=== PATIENT | male | born 1980 | race Caucasian/White ===

== ENCOUNTER 2018-10-21 16:42 | Inpatient (IN) | payer BC ==
[~2018-10-21] VITALS: Ht 175.3 cm; Wt 95.8 kg
[2018-10-21 16:45] VITALS: BP_SYST 179
--- NOTE | 2018-10-21 16:45 | NUR ---
Patient to ER bed 4 to gown for evaluation. Side rails up. Assumed care.
--- NOTE | 2018-10-21 16:55 | NUR ---
Patient AAOx4 c/o sub sternal chest pain that radiates to back and up to left upper jaw and ear. Patient reports last ETOH at 0900 today. Patient reports history of HTN, ADHD, and alcohol abuse. Patient reports pain as 3/10. Respirations even and unlabored. No signs or symptoms of acute distress noted.
[2018-10-21] MEDS ORDERED: ACETAMINOPHEN 325 MG TABLET PO ONE (17:00)
--- NOTE | 2018-10-21 17:00 | NUR ---
ER Dr. Leon at bedside examining patient.
[2018-10-21] MEDS ORDERED: ASPIRIN 81 MG TAB.CHEW PO ONE (17:15)
[2018-10-21 17:22] LABS: BASOPHILS # (AUTO) 0.1 K/uL (0.0-0.2); BASOPHILS % (AUTO) 0.9 % (0.0-2.0); EOSINOPHILS % (AUTO) 0.5 % (0.0-4.0); HEMATOCRIT 45.6 % (36-54); HEMOGLOBIN 15.9 g/dL (14.0-18.0); LYMPHOCYTES # (AUTO) 0.9 K/uL (1.0-5.5); LYMPHOCYTES % (AUTO) 10.5 % (20.5-51.5); MEAN CORPUSCULAR HEMOGLOBIN 31 pg (27-31); MEAN CORPUSCULAR HGB CONC 35 % (32-36); MEAN CORPUSCULAR VOLUME 88 fL (79.0-98.0); MONOCYTES # (AUTO) 1.1 K/uL (0.0-1.0); MONOCYTES % (AUTO) 12.1 % (1.7-9.3); NEUTROPHILS # (AUTO) 6.6 K/uL (1.8-7.7); PLATELET COUNT (AUTO) 253 K/uL (130-430); RED BLOOD CELL COUNT(AUTO) 5.21 MIL/uL (4.2-6.2); WHITE BLOOD COUNT (AUTO) 8.7 K/uL (4.8-10.8)
[2018-10-21 17:40] LABS: ANION GAP 4 (5-15); CALCIUM 9.1 mg/dL (8.4-11.0); CHLORIDE 93 mmol/L (98-107); CREATININE 1.24 mg/dL (0.55-1.30); GFR AFRICAN AMERICAN 83 mL/min (>90); GLUCOSE 112 mg/dL (70-99); SODIUM SERUM 131 mmol/L (136-145); UREA NITROGEN, BLOOD 12 mg/dL (8-21)
[2018-10-21 17:47] LABS: PROTHROMBIN TIME 10.3 SECS (9.5-12.5)
[2018-10-21 17:56] LABS: ALANINE AMINOTRANSFERASE 51 U/L (12-78); ALBUMIN 3.9 g/dL (3.4-4.8); ASPARTATE AMINOTRANSFERASE 40 U/L (10-37); FREE T4 (FREE THYROXINE) 0.9 ng/dL (0.6-1.6); TOTAL BILIRUBIN 1.8 mg/dL (0.0-1.0)
[2018-10-21 18:03] LABS: BILIRUBIN,URINE NEGATIVE (NEGATIVE); BLOOD, URINE 1+ (NEGATIVE); CLARITY/URINE CLEAR (CLEAR); COLOR,URINE YELLOW (YELLOW); GLUCOSE,URINE NEGATIVE (NEGATIVE); KETONES,URINE TRACE (NEGATIVE); LEUKOCYTE ESTERASE ,URINE NEGATIVE (NEGATIVE); NITRITE, URINE NEGATIVE (NEGATIVE); PROTEIN URINE 1+ (NEGATIVE)
[2018-10-21 18:05] LABS: ALCOHOL, BLOOD < 3 mg/dL (<10)
[2018-10-21 18:20] LABS: BARBITURATE, URINE NEGATIVE (NEG <=200); BENZODIAZEPINE, URINE NEGATIVE (NEG <=150); CANNABINOID, URINE NEGATIVE (NEG <=50); COCAINE, URINE NEGATIVE (NEG <=150); METHAMPHETAMINES SCREEN,URINE NEGATIVE (NEG <=500); OPIATE, URINE NEGATIVE (NEG <=100); PHENCYCLIDINE SCREEN,URINE NEGATIVE (NEG <=25); UR TRICYCLIC ANTIDEPRESSANTS NEGATIVE (NEG <=300); URINE AMPHETAMINE POSITIVE (NEG <=500); URINE METHADONE NEGATIVE (NEG <=200); URINE OXYCODONE SCREEN NEGATIVE (NEG <=100); URINE PROPOXYPHENE SCREEN NEGATIVE (NEG <=300)
[2018-10-21] MEDS ORDERED: Adderall PO (18:26)
[2018-10-21 18:35] LABS: BACTERIA,URINE FEW /HPF (None Seen); RBC,URINE 0-3 /HPF (0-3); WBC,URINE 0-3 /HPF (0-3)
[2018-10-21 18:37] LABS: MUCUS,URINE None Seen /LPF (None Seen)
[2018-10-21] MEDS ORDERED: METOPROLOL TARTRATE 5 MG/5 ML VIAL IVP ONE (18:45)
--- NOTE | 2018-10-21 19:00 | NUR ---
Pt report received. Pt AAOx4, even and non-labored respirations, denies c/o C/P or discomfort at this time. No needs verbalized at this time. VSS, NAD.
--- NOTE | 2018-10-21 20:15 | NUR ---
Pt states that C/P is at 2/10, refuses NTG at this time. No needs verbalized, VSS, NAD.
[2018-10-21] MEDS ORDERED: NACL 0.9% 1,000 ML IV ONE (20:30)
[2018-10-21] MEDS ORDERED: NITROGLYCERIN 0.4 MG TAB.SUBL SL PRN (20:30)
--- NOTE | 2018-10-21 20:30 | NUR ---
Dr. Landa at bedside to assess pt.
--- NOTE | 2018-10-21 20:50 | NUR ---
Patient will be admitted to care of Dr. Landa. Admitted to Tele unit. Will go to room 122A. Belongings list completed. Summary report printed. Report will be given at bedside.
--- NOTE | 2018-10-21 21:09 | NUR ---
Admission Note Received patient from ER with diagnosis of R/O OR. Initial Plan of Care discussed-patient verbalized understanding. Oriented to room, call light, pain management and safety.
[2018-10-21 21:20] VITALS: BP_SYST 149
--- NOTE | 2018-10-21 23:00 | NUR ---
ROUNDS Patient in bed, eyes closed, appears to be asleep. No signs of discomfort noted. Chest rise and fall even bilaterally. IVF infusing well. Call light with patient. Will continue to monitor.
--- NOTE | 2018-10-22 01:00 | NUR ---
ROUNDS Patient sleeping at this time. No s/s of acute distress noted. Breathing even and unlabored. IVF infusing well. Call light with patient. Will continue to monitor.
[2018-10-22 01:01] VITALS: BP_SYST 136
--- NOTE | 2018-10-22 03:00 | NUR ---
ROUNDS Patient sleeping. No signs of discomfort noted. IVF infusing well. Call light with patient. Will continue to monitor.
--- NOTE | 2018-10-22 05:00 | NUR ---
ROUNDS Patient sleeping at this time. No signs of discomfort noted. Chest rise and fall even bilaterally. IVF infusing well. Call light with patient. Will continue to monitor.
--- NOTE | 2018-10-22 06:09 | NUR ---
CONSULTATION PAGED/CALLED Reason for Consultation: CP R/O OR Person Who was Notified: JOHN Consulting Physician: DR. MARIE; DR. TAVERAS DIRECTOR OF VITAL STATISTICS Machine Stuffer Automatic Specialty: CARDIO Ordering Physician: DR. BHATTI
--- NOTE | 2018-10-22 06:38 | NUR ---
CLOSING NOTE Patient in bed, sleeping. No s/s of acute distress noted. Breathing even and unlabored. IVF infusing well. IV site patent, no signs of infiltration or infection noted. All needs met throughout shift. Fall and safety precautions maintained throughout shift. Will continue to monitor until patient care is endorsed to oncoming dayshift nurse.
--- NOTE | 2018-10-22 07:30 | NUR ---
A/Ox4. ST on monitor. IV on left AC, #18, SL, intact and patent. Instructed on safety. Call light in place, bed locked at the lowest position, will continue to monitor.
[2018-10-22 08:00] VITALS: BP_SYST 136
--- NOTE | 2018-10-22 09:10 | NUR ---
PATIENT IS EATING BREAKFAST, NO SIGNS OF DISTRESS NOTED.
[2018-10-22 09:36] LABS: BASOPHILS % (AUTO) 0.5 % (0.0-2.0); EOSINOPHILS % (AUTO) 0.5 % (0.0-4.0); HEMATOCRIT 43.1 % (36-54); HEMOGLOBIN 15.1 g/dL (14.0-18.0); LYMPHOCYTES # (AUTO) 0.8 K/uL (1.0-5.5); MEAN CORPUSCULAR HEMOGLOBIN 31 pg (27-31); MEAN CORPUSCULAR HGB CONC 35 % (32-36); MEAN CORPUSCULAR VOLUME 88 fL (79.0-98.0); MONOCYTES # (AUTO) 0.7 K/uL (0.0-1.0); MONOCYTES % (AUTO) 10.1 % (1.7-9.3); NEUTROPHILS # (AUTO) 5.3 K/uL (1.8-7.7); NEUTROPHILS % (AUTO) 76.9 % (40.0-70.0); PLATELET COUNT (AUTO) 211 K/uL (130-430); RED BLOOD CELL COUNT(AUTO) 4.87 MIL/uL (4.2-6.2); RED CELL DISTRIBUTION WIDTH 13.2 % (9.0-15.0)
[2018-10-22 09:41] LABS: CALCIUM 8.6 mg/dL (8.4-11.0); CREATININE 1.17 mg/dL (0.55-1.30); POTASSIUM 3.9 mmol/L (3.5-5.1)
[2018-10-22 09:56] LABS: ALBUMIN 3.2 g/dL (3.4-4.8); FREE T4 (FREE THYROXINE) 0.9 ng/dl (0.8-1.5); THYROID STIMULATING HORMONE 1.98 uIu/mL (0.36-3.74); TOTAL BILIRUBIN 1.6 mg/dL (0.0-1.0)
--- NOTE | 2018-10-22 10:10 | NUR ---
TROPONIN 0.218. IS INFORMED. NO NEW ORDERS GIVEN.
--- NOTE | 2018-10-22 11:08 | NUR ---
PATIENT IS RESTING. SR ON MONITOR, NO SIGNS OF DISTRESS NOTED.
[2018-10-22] MEDS ORDERED: ASPIRIN 81 MG TABLET(ECOTRIN) PO ONE (12:15)
[2018-10-22] MEDS ORDERED: METOPROLOL TARTRATE 25 MG TABLET PO ONE (12:15)
[2018-10-22 12:35] VITALS: BP_SYST 148
[2018-10-22] MEDS: ACETAMINOPHEN 325 MG TABLET PO PRN (13:00)
[2018-10-22] MEDS ORDERED: PANTOPRAZOLE SODIUM 80 MG in NS 100 ML IV ONE (13:30)
--- NOTE | 2018-10-22 13:30 | NUR ---
PATIENT IS RESTING, NO SIGNS OF DISTRESS NOTED.
[2018-10-22] MEDS: LEVOFLOXACIN 500 MG/D5W 100 ML IV SCH (16:19)
[2018-10-22 16:30] VITALS: BP_SYST 134
--- NOTE | 2018-10-22 16:54 | NUR ---
Troponin I at 0.807, up from 0.[address] Silva is informed, and he orders to recheck troponin I in tomorrow morning. Addendum: 10/22/18 at 1717 by Dawit Messina RN Dr. Silva is suggested on drawing another troponin in 8 hours, or EKG.
--- NOTE | 2018-10-22 18:30 | NUR ---
DR. BHATTI IS CALLED TO UPDATE HIM ON THE PATIENT'S STATUS. SEDATIVE FOR INSOMNIA IS ALSO REQUESTED.
--- NOTE | 2018-10-22 19:50 | NUR ---
OPENING NOTES Patient resting in bed, A/O x4. HOB elevated, no acute respiratory distress observed. IV Left AC 18 g, saline lock, patent, dressings c/d/i. Call light within reach, bed alarm refused after education on risks and benefits provided, patient verbalizes understanding, and bed at lowest position. Will continue to monitor.
[2018-10-22 20:00] VITALS: BP_SYST 147
[2018-10-22] MEDS: METOPROLOL TARTRATE 25 MG TABLET PO SCH (21:02)
[2018-10-22] MEDS: LORazepam 1 MG TABLET PO PRN (21:02)
--- NOTE | 2018-10-22 22:00 | NUR ---
Administered medications and Ativan PRN PO, patient tolerated well. Patient resting in bed, no signs of acute respiratory distress observed. Will continue to monitor.
[2018-10-23] VITALS: BP_SYST 130
--- NOTE | 2018-10-23 | NUR ---
Patient resting in bed, no acute respiratory distress observed. Safety precautions in place. Will continue to monitor.
[2018-10-23] MEDS: ACETAMINOPHEN 325 MG TABLET PO PRN ×3 (02:11→20:33)
--- NOTE | 2018-10-23 02:43 | NUR ---
Tylenol was given for headache and temperature of 101.2. Cooling measures refused. Will continue to monitor and assess.
--- NOTE | 2018-10-23 04:30 | NUR ---
Patient temperature 98.7 and shows no signs of pain at this time. No acute respiratory distress observed. Will continue to monitor.
--- NOTE | 2018-10-23 06:53 | NUR ---
CLOSING NOTES Patient is resting in bed. No acute respiratory distress observed. IV Right AC 18g SL patent, dressings c/d/i. All needs met throughout shift. Call light within reach, bed alarm refused after patient understanding risks and benefits, and bed at lowest position. Will endorse care to oncoming shift.
[2018-10-23 08:00] VITALS: BP_SYST 139
[2018-10-23] MEDS: METOPROLOL TARTRATE 25 MG TABLET PO SCH ×2 (08:10→20:33)
[2018-10-23] MEDS: ASPIRIN 81 MG TABLET(ECOTRIN) PO SCH (08:10)
[2018-10-23] MEDS: MAG-AL HYDROX/SIMETH 30 ML UDC PO PRN ×2 (08:10→18:03)
[2018-10-23] MEDS: *LOVENOX 1MG/KG Q12H/PHARMACY XX SCH ×2 (10:00→21:00)
[2018-10-23] MEDS ORDERED: *LOVENOX 1MG/KG Q12H/PHARMACY XX ONE (10:00)
--- NOTE | 2018-10-23 10:10 | NUR ---
CALLED [facility] FOR TRANSFER SPOKE TO MARISOL DIALED [phone] WILL FAX PATIENT FACE SHEET AND TRANSFER ORDER
[2018-10-23] MEDS ORDERED: ENOXAPARIN SODIUM 100 MG/ML SYRINGE SUBCUT ONE ×2 (10:15→21:00)
--- NOTE | 2018-10-23 10:20 | NUR ---
TRANSFER: CALLED [facility] FOR TRANSFER AUTHORIZATION OFFICE FOR AUTHORIZATION IS CLOSED DUE TO HOLIDAY INFORMED CHARGE NURSE DIALED [phone]
--- NOTE | 2018-10-23 11:24 | NUR ---
Informed Dr. Billingsley that authorization is unable to be obtained, as the insurance office is closed for the holiday. . Dr. Billingsley states he may reschedule if needed.
[2018-10-23 12:00] VITALS: BP_SYST 132
--- NOTE | 2018-10-23 12:34 | NUR ---
CONSULT ID DR. YOUNGBLOOD CALLED SPOKE TO STEVE DIALED [phone] BHATTI
[2018-10-23] MEDS: LORazepam 1 MG TABLET PO PRN ×2 (12:40→20:32)
--- NOTE | 2018-10-23 13:48 | NUR ---
Dr. Billingsley is called regarding patient's current condition.
--- NOTE | 2018-10-23 14:00 | NUR ---
DISCHARGE PLANNING FOR TRANSFER TO [facility] FAXED FACE SHEET [facility] [place] SPOKE TO LEXIE FROM ADMITIING AND WANTS US TO CALL INSURANCE FOR AUTHORIZATION TO PROCESS THE TRANSFER. CALLED PATIENT INSURANCE [facility] P[phone] BY NEWSPAPER CORRESPONDENT AND MANSI, INSURANCE IS CLOSED FOR HOLIDAY. DR ARORA AWARE AND WILL CALL [facility] TO CHANGE TIME. PRINTER OPERATOR TO FOLLOW UP IN AM.
[2018-10-23 16:00] VITALS: BP_SYST 152
--- NOTE | 2018-10-23 16:30 | NUR ---
Patient is resting, no signs of distress noted.
[2018-10-23] MEDS: LEVOFLOXACIN 500 MG/D5W 100 ML IV SCH (16:39)
--- NOTE | 2018-10-23 18:24 | NUR ---
PATIENT IS EATING DINNER, BUT STILL C/O DISCOMFORT WHEN TRY SWALLOWING FOOD.
[2018-10-23] MEDS ORDERED: MICAFUNGIN SODIUM 100 MG in NS 100 ML IV SCH (19:00)
--- NOTE | 2018-10-23 19:30 | NUR ---
OPENING NOTES Patient A/Ox4 in bed, no respiratory distress observed. Patient has no pain at this time. Patient has temperature of 101.5, cooling measures in place. Patient has IV Left AC 18g, patent, dressings c/d/i. Call light within reach, bed alarm refused, patient education on risks and benefits taught, patient verbalized understanding, and bed at lowest position. Will continue to monitor.
[2018-10-23 20:07] VITALS: BP_SYST 141
[2018-10-23] MEDS ORDERED: VORICONAZOLE 200 MG TABLET PO SCH (22:00)
--- NOTE | 2018-10-23 22:12 | NUR ---
RECEIVED CALL BACK FROM DR JUAREZ. MYCAMINE NOT AVAILABLE. NEW ORDER VFEND 200MG PO BID.
--- NOTE | 2018-10-23 23:06 | NUR ---
SPOKE TO MD RYLIE. RECEIVED ORDERS TO DC MYCAMIN AND VFEND. START NOW FLUCONAZOLE IV.
[2018-10-24] VITALS: BP_SYST 129
[2018-10-24] MEDS ORDERED: FLUCONAZOLE 200 mg/ NS 100 ML IV SCH
[2018-10-24] MEDS ORDERED: FLUCONAZOLE 200 mg/ NS 100 ML IV ONE (00:52)
--- NOTE | 2018-10-24 01:31 | NUR ---
Patient resting in bed. No signs of acute respiratory distress observed, patient has no pain at this time. Linens exchanged. Safety precautions in place. Will continue to monitor.
--- NOTE | 2018-10-24 03:02 | NUR ---
Patient is resting in bed. No signs of acute respiratory distress observed. Will continue to monitor.
[2018-10-24 05:07] VITALS: BP_SYST 131
--- NOTE | 2018-10-24 05:09 | NUR ---
Patient resting in bed, no acute respiratory distress observed. Patient has temperature of 100.3, patient was hugging pillow and refuses to use cooling measures. Patient also refuses to take off blankets. Will continue to monitor.
[2018-10-24] MEDS: ACETAMINOPHEN 325 MG TABLET PO PRN (05:18)
[2018-10-24] MEDS: LORazepam 1 MG TABLET PO PRN (05:18)
--- NOTE | 2018-10-24 05:29 | NUR ---
Tylenol given for elevated temperature, and Ativan administered for restlessness. Will assess temperature in an hour.
--- NOTE | 2018-10-24 06:30 | NUR ---
CLOSING NOTES Patient resting in bed, no acute respiratory distress observed at this time. IV Right AC 18g running patent, dressing c/d/i. All needs met throughout shift. Call light within reach, bed alarm refused, and bed at lowest position. Will endorse care to the oncoming shift.
--- NOTE | 2018-10-24 06:54 | NUR ---
RECEIVED CALL FROM MARISOL (BED CONTROL) AT [facility]. PENDING INSURANCE AUTHORIZATION FROM CASE MANAGEMENT. RETURN CALL TO [phone] TO EXPEDITE TRANSFER.
--- NOTE | 2018-10-24 07:33 | NUR ---
AM ROUNDS: Patient is oriented x4, ambulatory. Denies chest pain. Kept NPO pending transfer to [facility] for cardiac catheterization. Call light within reach.
--- NOTE | 2018-10-24 07:45 | NUR ---
IV START: Started gauge 20 on the left forearm. Secured with clear dressing and tape. Old IV was removed, no bleeding noted.
[2018-10-24 08:00] VITALS: BP_SYST 131
--- NOTE | 2018-10-24 08:15 | NUR ---
Case management notification: Spoke with Shanika regarding need for insurance authorization for transfer to [facility] labor service representative.
--- NOTE | 2018-10-24 08:32 | NUR ---
Cardio Rounds: Seen by Dr. Schwab. Aware of this morning's temperature of 99. Remains NPO.
[2018-10-24] MEDS: METOPROLOL TARTRATE 25 MG TABLET PO SCH (09:00)
[2018-10-24] MEDS: ASPIRIN 81 MG TABLET(ECOTRIN) PO SCH (09:00)
[2018-10-24 10:15] VITALS: BP_SYST 126
--- NOTE | 2018-10-24 10:24 | NUR ---
CASE MANAGEMENT: CM CONTACTED [facility] PPO @ [phone] OPT. 6. SPOKE WITH JOSEPH (SHEET TAKER) REGARDING TRANSFER ORDER TO [facility] FOR CARDIAC CATH. AUTHORIZATION FOR [facility] WAS OBTAINED. AUTH # [id number]. PER JOSEPH, HARD COPY OF AUTH WILL BE FAXED TO DR. ARORA OFFICE AND [facility] AND AUTH IS FOR 3 DAYS. CM TRIED TO OBTAIN HARD COPY OF THE AUTH FOR [facility]. HOWEVER, THEY CAN ONLY FAX HARD COPY TO [facility] AND DR. ARORA OFFICE. PER JOSEPH, NO AUTH NEEDED FOR TRANSPORTATION IT IS EMERGENCY. CALL REFERENCE NUMBER IS [id number]. CM CONTACTED [facility] AD[facility] @ [phone]. SPOKE WITH MARISOL (CERAMIC TILE SETTER), PROVIDED AUTHORIZATION FOR CARDIAC CATH. PATIENT WILL NEED TO HAVE ASSIGNED BED. HOWEVER, GUEST HOUSE MANAGER HAS NOT ASSIGNED ONE YET. AWAITING FOR BED AT THIS TIME. PER MARISOL, THEY ARE ALSO WAITING FOR HARD COPY OF AUTHORIZATION. Addendum: 10/24/18 at 1144 by Madhavi Iniguez RN CM SPOKE WITH MARISOL (CERAMIC TILE SETTER AT [facility]). PATIENT IS ACCEPTED AND HARD COPY OF THE AUTHORIZATION HAS BEEN OBTAINED. PATIENT WILL BE GOING TO ROOM 268B AT [facility]. FOR REPORT CALL . TRANSPORTATION HAS BEEN SET UP WITH [facility] @ [phone] WITH ALS/ TOGGLE PRESS OPERATOR AND SERVICE ORDER EXPEDITER TIME IS AT 11:45AM. ACCEPTING MD IS JERED GARVEY.
[2018-10-24 10:59] VITALS: BP_SYST 126
--- NOTE | 2018-10-24 11:29 | NUR ---
transfer report: Report given to Cyndi at [facility]. Patient is going to room 268 bed 2. Patient is aware.
--- NOTE | 2018-10-24 12:05 | NUR ---
Transfer to [facility]: Transferred to [facility] with medic one ambualance. No chest pain when transferred.
[2018-10-26 20:05] LABS: LEGIONELLA PNEUMOPHILIA AB <0.91 OD ratio (0.00-0.90); MYCOPLASMA PNEUMONIAE IgM <770 U/mL (0-769)
== END 2018-10-24 12:05 | disposition short-term general hospital (02) | DRG 281 ==
LOC: SED 16:42 → STU 20:30
PROVIDERS: ADMIT Family Medicine; ATTEND Family Medicine
DX: I21.4 Non-ST elevation (NSTEMI) myocardial infarction (principal); F10.239 Alcohol dependence with withdrawal, unspecified; F90.9 Attention-deficit hyperactivity disorder, unspecified type; F41.9 Anxiety disorder, unspecified; E86.0 Dehydration; K21.9 Gastro-esophageal reflux disease without esophagitis
CPT/HCPCS: 36415; 71045; 71250-TC; 80053; 80061; 80307; 81000-TC; 82140-TC; 83036; 83605; 83880; 84439; 84443-TC; 84484; 85025; 85610-TC; 85651-TC; 86606; 86713; 86738; 87040-TC; 93005; 93306; 96365; 99285; C9113; G0378; G0482; J1450; J1650; J1956; J2248; J3490; J7030

== ENCOUNTER 2021-05-30 21:13 | Emergency (ER) | payer BC, MEDICAID ==
[~2021-05-30] VITALS: Ht 170.2 cm; Wt 95.3 kg
[~2021-05-30 21:13] MED LIST: Adderall PO
--- NOTE | 2021-05-30 21:23 | NUR ---
Patient to ER bed 08 to gown for evaluation. Side rails up.
[2021-05-30 21:24] VITALS: BP_SYST 151
--- NOTE | 2021-05-30 21:25 | NUR ---
Pt brought by self, A&Ox3, pt presents to ER with anxiety, numbness on L arm , nausea, states he has been drinking Vodka to relieve his anxiety,pt states he went to a hospital in [place] today but did not get enough help, pt drove himself to this ER, intact ROM, skin pink and warm, cap refill<3, no vomiting noted at this time, denies pain, will cont to monitor.
[2021-05-30] MEDS ORDERED: NACL 0.9% 2,000 ML IV ONE (21:30)
[2021-05-30] MEDS ORDERED: LORazepam 2 MG/ML VIAL IVP ONE (21:30)
--- NOTE | 2021-05-30 21:30 | NUR ---
Dr Mata evaluating patient at bedside
[2021-05-30] MEDS ORDERED: LORazepam 2 MG/ML VIAL ONE (21:39)
[2021-05-30 21:46] LABS: BASOPHILS # (AUTO) 0.1 K/uL (0.0-0.2); MONOCYTES # (AUTO) 0.5 K/uL (0.0-1.0)
--- NOTE | 2021-05-30 22:02 | NUR ---
Pt off the unit for CT
[2021-05-30 22:15] VITALS: BP_SYST 144
[2021-05-30 22:16] LABS: BASOPHILS % (AUTO) 0.7 % (0.0-2.0); EOSINOPHILS # (AUTO) 0.4 K/uL (0.0-0.4); EOSINOPHILS % (AUTO) 4.8 % (0.0-4.0); HEMOGLOBIN 14.8 g/dL (14.0-18.0); LYMPHOCYTES # (AUTO) 3.2 K/uL (1.0-5.5); LYMPHOCYTES % (AUTO) 39.6 % (20.5-51.5); MEAN CORPUSCULAR HEMOGLOBIN 32 pg (27-31); MEAN CORPUSCULAR HGB CONC 35 % (32-36); MEAN CORPUSCULAR VOLUME 90 fL (79.0-98.0); MONOCYTES % (AUTO) 6.2 % (1.7-9.3); NEUTROPHILS # (AUTO) 3.9 K/uL (1.8-7.7); NEUTROPHILS % (AUTO) 48.7 % (40.0-70.0); PLATELET COUNT (AUTO) 314 K/uL (130-430); RED BLOOD CELL COUNT(AUTO) 4.66 MIL/uL (4.2-6.2); RED CELL DISTRIBUTION WIDTH 11.6 % (9.0-15.0)
[2021-05-30 22:29] LABS: BARBITURATE, URINE NEGATIVE (NEG <=200); BENZODIAZEPINE, URINE POSITIVE (NEG <=150); CANNABINOID, URINE NEGATIVE (NEG <=50); COCAINE, URINE NEGATIVE (NEG <=150); METHAMPHETAMINES SCREEN,URINE NEGATIVE (NEG <=500); OPIATE, URINE NEGATIVE (NEG <=100); PHENCYCLIDINE SCREEN,URINE NEGATIVE (NEG <=25); UR TRICYCLIC ANTIDEPRESSANTS NEGATIVE (NEG <=300); URINE AMPHETAMINE NEGATIVE (NEG <=500); URINE METHADONE NEGATIVE (NEG <=200); URINE OXYCODONE SCREEN NEGATIVE (NEG <=100); URINE PROPOXYPHENE SCREEN NEGATIVE (NEG <=300)
[2021-05-30 22:32] LABS: ACETONE, SERUM NEGATIVE (NEGATIVE)
--- NOTE | 2021-05-30 22:34 | NUR ---
1L NS BOLUS COMPLETED, PT TOLERATED WELL.
--- NOTE | 2021-05-30 22:39 | NUR ---
PT WITH EYES CLOSED, IN NAD. RESP EVEN AND UNLABORED, ON RA @ 93%
[2021-05-30 22:42] LABS: ALANINE AMINOTRANSFERASE 74 U/L (12-78); ALBUMIN 3.8 g/dL (3.4-4.8); ALCOHOL, BLOOD 284 mg/dL (<10); AMYLASE 37 U/L (0-100); ASPARTATE AMINOTRANSFERASE 74 U/L (10-37); CALCIUM 8.6 mg/dL (8.4-11.0); CREATININE 1.04 mg/dL (0.55-1.30); GLUCOSE 134 mg/dL (70-99); LIPASE 158 U/L (73-393); TOTAL BILIRUBIN 0.6 mg/dL (0.0-1.0); UREA NITROGEN, BLOOD 9 mg/dL (8-21)
[2021-05-30 22:47] LABS: ANION GAP 14 (5-15); CHLORIDE 102 mmol/L (98-107); POTASSIUM 3.2 mmol/L (3.5-5.1); SODIUM SERUM 141 mmol/L (136-145)
--- NOTE | 2021-05-30 23:05 | NUR ---
PT REMOVED IV LINE, DR HAINES IN ROOM TO TALK WITH PT.
--- NOTE | 2021-05-30 23:10 | NUR ---
PT ASKED IF HE HAD A PHONE TO CALL [facility]BK[facility], HE SAID HE DID NOT BRING HIS PHONE WITH HIM. OFFERED TO CALL A FAMILY/FRIEND, HE SAID "NO, DONT DO THAT" INFORMED THAT WE COULD CALL [facility], HE STATED HE STOOD UP FROM BED, "I DONT HAVE TO STAY HERE, IM LEAVING". PT ADVISED TO STAY IN ER AND SLEEP IT OFF UNTIL HE IS SOBER TO DRIVE. PT TALKING WITH DR HAINES. I LEFT ROOM AND NOTIFIED QI RANKIN.
--- NOTE | 2021-05-30 23:17 | NUR ---
PT ELOPED, I RAN AFTER HIM AND NOTICED THAT HE GOT INTO HIS VECHICLE AND LEFT. I SHOUTED BUT HE DID NOT STOP. QI RANKIN AND DR HAINES INOTIFIED. I IMMEDIATELY CALLED [facility] AND SPOKE TO [facility] TO REPORT INCIDENT AND LICENSE PLATE NUMBER. PT HAD POSITIVE ETOH LEVEL 284. CLINICALLY PT WAS INTOXICATED PER DR HAINES.
== END 2021-05-30 23:18 | disposition left against medical advice (07) ==
LOC: SED 21:13
DX: F10.10 Alcohol abuse, uncomplicated (principal)
CPT/HCPCS: 36415; 70450; 76376; 80053; 80307; 81002; 82009; 82140; 82150; 83605; 83690; 85025; 96361; 96374; 99284; G0482; J2060; J7030

== ENCOUNTER 2021-06-03 12:56 | Emergency (ER) | payer MEDICAID ==
[~2021-06-03] VITALS: Ht 175.3 cm; Wt 97.5 kg
[2021-06-03 12:56] VITALS: BP_SYST 159
--- NOTE | 2021-06-03 12:56 | NUR ---
BROUGHT IN BY [facility], PLACED IN BED #4 AND TRIAGED. REPORT GIVEN TO MU
--- NOTE | 2021-06-03 13:05 | NUR ---
PT BIBA FROM HOME C/O CHEST PAIN, UNABLE TO SLEEP AND ALCOHOL INTOXICATION. PT ADMITS TO RELAPSING ON VODKA TODAY AND DRANK ABOUT 1 PINT TODAY. PT ARRIVES SMELLING OF ALCOHOL STATES SUBSTERNAL CHEST PAIN 06/30, VSS
--- NOTE | 2021-06-03 13:30 | NUR ---
ER DR. TINAJERO AT THE BEDSIDE EXAMINING PT
[2021-06-03 14:13] LABS: BASOPHILS # (AUTO) 0.1 K/uL (0.0-0.2); BASOPHILS % (AUTO) 1.2 % (0.0-2.0); EOSINOPHILS # (AUTO) 0.3 K/uL (0.0-0.4); EOSINOPHILS % (AUTO) 6.6 % (0.0-4.0); HEMATOCRIT 47.8 % (36-54); HEMOGLOBIN 16.4 g/dL (14.0-18.0); LYMPHOCYTES # (AUTO) 2.1 K/uL (1.0-5.5); LYMPHOCYTES % (AUTO) 40.2 % (20.5-51.5); MEAN CORPUSCULAR HEMOGLOBIN 31 pg (27-31); MEAN CORPUSCULAR HGB CONC 34 % (32-36); MEAN CORPUSCULAR VOLUME 90 fL (79.0-98.0); MONOCYTES # (AUTO) 0.4 K/uL (0.0-1.0); MONOCYTES % (AUTO) 8.4 % (1.7-9.3); NEUTROPHILS # (AUTO) 2.3 K/uL (1.8-7.7); NEUTROPHILS % (AUTO) 43.6 % (40.0-70.0); PLATELET COUNT (AUTO) 289 K/uL (130-430); RED BLOOD CELL COUNT(AUTO) 5.29 MIL/uL (4.2-6.2); WHITE BLOOD COUNT (AUTO) 5.2 K/uL (4.8-10.8)
[2021-06-03 14:27] LABS: ANION GAP 5 (5-15); CALCIUM 8.9 mg/dL (8.4-11.0); CHLORIDE 101 mmol/L (98-107); CREATININE 1.03 mg/dL (0.55-1.30); GLUCOSE 111 mg/dL (70-99); POTASSIUM 4.3 mmol/L (3.5-5.1); SODIUM SERUM 139 mmol/L (136-145); UREA NITROGEN, BLOOD 11 mg/dL (8-21)
[2021-06-03 14:28] LABS: GFR AFRICAN AMERICAN 101 mL/min (>90)
--- NOTE | 2021-06-03 14:29 | NUR ---
Pt resting in bed, VSS, respirations even and unlabored, cap refill <3.
--- NOTE | 2021-06-03 14:29 | NUR ---
Note mari in EDM - 06/03/21 at 1430 by SDEDAFJ Pt resying in bed, VSS, respirations even and unlabored, cap refill <3.
[2021-06-03 14:38] LABS: ALANINE AMINOTRANSFERASE 136 U/L (12-78); ASPARTATE AMINOTRANSFERASE 142 U/L (10-37); TOTAL BILIRUBIN 1.4 mg/dL (0.0-1.0)
--- NOTE | 2021-06-03 14:50 | NUR ---
Patient does not wish to proceed with medical care recommended by LIOR/CATHIE. Patient given information related to possible complications, up to and including , which could occur as a result of leaving hospital at this time. Patient verbalizes understanding of risks involved leaving against medical advice. Patient has signed AMA form.
== END 2021-06-03 14:50 | disposition left against medical advice (07) ==
LOC: SED 12:56
DX: R07.9 Chest pain, unspecified (principal); F10.229 Alcohol dependence with intoxication, unspecified; Y90.9 Presence of alcohol in blood, level not specified
CPT/HCPCS: 36415; 71045; 80053; 84484; 85025; 99284

== ENCOUNTER 2021-09-18 20:08 | Inpatient (IN) | payer MEDICAID ==
[~2021-09-18] VITALS: Ht 175.3 cm; Wt 88.5 kg
[2021-09-18 20:32] VITALS: BP_SYST 140
--- NOTE | 2021-09-18 20:36 | NUR ---
Pt to ER via EMS w/ c/o Left-sided chest pain 10/10 x 1 hour and bilateral arm pain and numbness. Pt has NO arm drift and horseradish maker strength is equal bilaterally. Normal skin color for ethnicity. Respirations even and unlabored. Denies N/V/D. Pt states "I drank about 750 mL of vodka earlier today".
--- NOTE | 2021-09-18 22:53 | NUR ---
Placed in room 05 . Placed on director of cardiac rehabilitation, blood pressure machine and pulse oximeter. To gown for exam. Side rails up. Report given to FLOR THOMPSON
[2021-09-18] MEDS ORDERED: ASPIRIN 81 MG TAB.CHEW PO ONE (23:00)
[2021-09-18 23:21] LABS: BASOPHILS % (AUTO) 0.5 % (0.0-2.0); EOSINOPHILS # (AUTO) 0.2 K/uL (0.0-0.4); EOSINOPHILS % (AUTO) 3.7 % (0.0-4.0); HEMATOCRIT 44.7 % (36-54); HEMOGLOBIN 15.7 g/dL (14.0-18.0); LYMPHOCYTES # (AUTO) 2.4 K/uL (1.0-5.5); LYMPHOCYTES % (AUTO) 36.5 % (20.5-51.5); MEAN CORPUSCULAR HEMOGLOBIN 31 pg (27-31); MEAN CORPUSCULAR HGB CONC 35 % (32-36); MEAN CORPUSCULAR VOLUME 88 fL (79.0-98.0); MONOCYTES # (AUTO) 0.7 K/uL (0.0-1.0); MONOCYTES % (AUTO) 10.5 % (1.7-9.3); NEUTROPHILS # (AUTO) 3.1 K/uL (1.8-7.7); NEUTROPHILS % (AUTO) 48.8 % (40.0-70.0); PLATELET COUNT (AUTO) 214 K/uL (130-430); RED BLOOD CELL COUNT(AUTO) 5.11 MIL/uL (4.2-6.2); RED CELL DISTRIBUTION WIDTH 12.7 % (9.0-15.0); WHITE BLOOD COUNT (AUTO) 6.4 K/uL (4.8-10.8)
--- NOTE | 2021-09-18 23:37 | NUR ---
Pt noted asleep in bed, easy to arouse. No signs of pain/discomfort. Denies any CP at this time.
[2021-09-18 23:43] LABS: ANION GAP 9 (5-15); CALCIUM 8.6 mg/dL (8.4-11.0); CHLORIDE 101 mmol/L (98-107); CREATININE 0.82 mg/dL (0.55-1.30); GLUCOSE 92 mg/dL (70-99); POTASSIUM 3.7 mmol/L (3.5-5.1); SODIUM SERUM 140 mmol/L (136-145); UREA NITROGEN, BLOOD 11 mg/dL (8-21)
[2021-09-18 23:44] LABS: GFR AFRICAN AMERICAN 132 mL/min (>90)
[2021-09-18 23:54] LABS: ALANINE AMINOTRANSFERASE 71 U/L (12-78); ALBUMIN 3.7 g/dL (3.4-4.8); ASPARTATE AMINOTRANSFERASE 100 U/L (10-37); TOTAL BILIRUBIN 0.8 mg/dL (0.0-1.0)
[2021-09-19] VITALS (18 sets, daily range): BP systolic 80–180
[2021-09-19] MEDS ORDERED: LORazepam 2 MG/ML VIAL IVP ONE ×4 (00:15→05:00)
[2021-09-19] MEDS ORDERED: NACL 0.9% 2,000 ML IV ONE (00:15)
[2021-09-19] MEDS ORDERED: chlordiazePOXIDE HCL 25 MG CAPSULE PO ONE (00:15)
[2021-09-19] MEDS ORDERED: FOLIC ACID 1 MG, THIAMINE HCL 100 MG, MAGNESIUM SULFATE 1 GM, MVI 10 ML in NACL 0.9% 1,... IV ONE ×2 (01:00→03:45)
[2021-09-19] MEDS ORDERED: MAGNESIUM SULFATE 1 GM/2 ML VIAL ONE (01:14)
[2021-09-19] MEDS ORDERED: FOLIC ACID 5 MG/ML VIAL IV ONE (01:14)
[2021-09-19] MEDS ORDERED: THIAMINE HCL 100 MG/ML VIAL ONE (01:14)
[2021-09-19] MEDS ORDERED: MVI 10 ML VIAL IV ONE (01:14)
[2021-09-19] MEDS ORDERED: PHENobarbital SODIUM 65 MG/ML VIAL IVP ONE ×2 (02:15→03:00)
[2021-09-19] MEDS ORDERED: NITROGLYCERIN 0.4 MG TAB.SUBL SL PRN (03:45)
[2021-09-19] MEDS ORDERED: traZODone HCL 50 MG TABLET (DESYREL) PO ONE (04:15)
[2021-09-19] MEDS ORDERED: traZODone HCL 50 MG TABLET (DESYREL) ONE (04:30)
[2021-09-19] MEDS ORDERED: DEXMEDETOMIDINE HCL 200 MCG in NS 48 ML IV PRN (05:00)
--- NOTE | 2021-09-19 05:11 | NUR ---
Admit bed requested Patient will be admitted to care of . Admitted to ICU unit. Diagnosis : ALCOHOL WITHDRAWAL/ CP Inpatient (Yes or No) Y Observation (Yes or No) Y Covid Status : PENDING From Home (Yes or if No enter name of facility) Y
--- NOTE | 2021-09-19 05:12 | NUR ---
Covid/MRSA swabs collected and sent to lab.
--- NOTE | 2021-09-19 06:03 | NUR ---
Pt noted sleeping comfortably; easy to arouse. Appears in no acute distress. Breathing adequately on RA. VSS at this time.
--- NOTE | 2021-09-19 06:40 | NUR ---
admitted from ER via erdougherty drowsy but able to arouse and responsive appropriate, A&Ox4 but sleepy most of the time., refused to be gown up and CHG bath, connected to bedside monitor with the following VSS BP 154/95, HR-54 SB on monitor 94% on R.A and RR-13 not in resp distress, sleeping at Lt side, IVF running at rt hand G20. Continue to monitor. call light at bedside instructed, bed on low position.
--- NOTE | 2021-09-19 06:50 | NUR ---
Patient will be admitted to [facility]. Admitted to ICU unit. Will go to room ICU2. Complete and up to date summary report printed. SBAR report given at bedside to FLOR Walter with opportunity for questions.
--- NOTE | 2021-09-19 06:55 | NUR ---
CONSULTATION PAGED/CALLED Reason for Consultation: CHEST PAIN Person Who was Notified: WILBER Consulting Physician: DR. FORTUNE In Flight Technician Specialty: CARDIOLOGY Ordering Physician: DR. HANSEN
--- NOTE | 2021-09-19 08:00 | NUR ---
PAGED DR HANSEN, AWAITING CALL BACK. AWAITING TO ASK IF DR HANSEN WANTS PRN ATIVAN BECAUSE PATIENT IS HAVING INCREASED AGITATION RELATED TO ALCOHOL WITHDRAWAL.
[2021-09-19 09:55] LABS: BARBITURATE, URINE POSITIVE (NEG <=200); BENZODIAZEPINE, URINE POSITIVE (NEG <=150); CANNABINOID, URINE NEGATIVE (NEG <=50); COCAINE, URINE NEGATIVE (NEG <=150); METHAMPHETAMINES SCREEN,URINE NEGATIVE (NEG <=500); OPIATE, URINE NEGATIVE (NEG <=100); PHENCYCLIDINE SCREEN,URINE NEGATIVE (NEG <=25); UR TRICYCLIC ANTIDEPRESSANTS NEGATIVE (NEG <=300); URINE AMPHETAMINE NEGATIVE (NEG <=500); URINE METHADONE NEGATIVE (NEG <=200); URINE OXYCODONE SCREEN NEGATIVE (NEG <=100); URINE PROPOXYPHENE SCREEN NEGATIVE (NEG <=300)
[2021-09-19] MEDS ORDERED: THIAMINE HCL 100 MG TABLET PO ONE (10:00)
[2021-09-19] MEDS: chlordiazePOXIDE HCL 25 MG CAPSULE PO PRN ×3 (10:16→20:33)
--- NOTE | 2021-09-19 11:00 | NUR ---
PAGED DR HANSEN AGAIN, HE CALLED BACK, EXPLAINED THAT PATIENT IS HAVING INCREASED AGITATION AND INTERMITTENTLY TALKS ABOUT WANTING TO LEAVE AMA DESPITE EDUCATION, ASKED IF WANTS TO ORDER ATIVAN FOR PRN INCREASED AGITATION/ANXIETY OR EVEN FOR PRN SEIZURE. DR HANSEN STATED NO. TO ONLY CONTINUE WITH LIBRIUM. IN ADDITION ASKED FOR DIET ORDER AND FLUID. STATED HE ALREADY ORDERED DIET AND BANANA BAG BUT THERE IS NO ACTIVE ORDER. ORDERED CARDIAC DIET AND FOR 1 BANANA BAG TO BE GIVEN.
[2021-09-19] MEDS ORDERED: LORazepam 1 MG TABLET PO ONE (11:45)
[2021-09-19] MEDS ORDERED: SERTRALINE HCL 50 MG TABLET PO ONE (11:45)
--- NOTE | 2021-09-19 12:32 | NUR ---
Initial DC planning Asst and SS Consult SOFTWARE CONFIGURATION ANALYST met with Pt. at bedside in the ICU. He was initially sleeping but arose and was agreeable to speak with SOFTWARE CONFIGURATION ANALYST. Pt. was referred for a SS consult to address ETOH w/d and Initial DC planning. SOFTWARE CONFIGURATION ANALYST spoke with Pt. He appeared and oriented able to communicate well. He did not appear to be in any acute psychiatric distress, his mood was euthymic and wnl. Pt. reported that he drank in excess the night before and went into ETOH W/D, he did appear somewhat lethargic , but no tremors observed. Pt. was requesting a Benzo taper, he confirmed he develop a tolerance to benzo and ETOH. Pt. has a sponsor and attends AA meeting occasionally. Pt reported he has been to rehab in the past, he was not open to the idea now and did not want to discuss the matter. Pt. stated he recently lost his employment and his father was evicting him which made his relapse. Pt. stated that he has a lot of support from his friends and family and the are wanting for him to go to an [place] center. He reported he is not intrested at this time. Pt. asked to go home, he was reminded of the danger of ETOH w/d and SOFTWARE CONFIGURATION ANALYST suggested he wait until he is more stable. He reluctancy agreed. Pt. was provided with psychoeducation on Vivitrol and MAT Tx, he was given a list of provider in his area. He was receptive to this info. Pt was also given [place] resources to connect with upon DC. He had no further SS inquiry. Tentative DC plan is to return home. DC / CM and SS will remain available. DC planning Asst completed.
--- NOTE | 2021-09-19 14:25 | NUR ---
CONSULTATION PAGED/CALLED Reason for Consultation: depression Person Who was Notified: exchange voicemail Consulting Physician: Dr. Mclaughlin Paint Roller Covers Supervisor Specialty: psych Ordering Physician: Dr. Ruby
[2021-09-19] MEDS ORDERED: amLODIPine BESYLATE 10 MG TABLET PO ONE (17:00)
[2021-09-19] MEDS ORDERED: cloNIDine HCL 0.1 MG TABLET PO PRN (17:00)
--- NOTE | 2021-09-19 17:06 | NUR ---
NOTIFIED DR HANSEN THAT PATIENT'S BLOOD PRESSURE HAS TRENDED UP TO 182/92 AND THAT THE PATIENT IS HAVING INCREASED AGITATION AND ANXIETY, ORDERED TO GIVE CLONIDINE 0.1MG Q6H PRN SYSTOLIC BP >160 AND NORVASC 10MG DAILY WITH FIRST DOSE TO BE GIVEN NOW. NO OTHER ORDERS FOR ALCOHOL WITHDRAWAL SYMPTOMS. PROVIDED ORDERED BLOOD PRESSURE MEDICATIONS TO PATIENT.
[2021-09-19] MEDS ORDERED: ENALAPRILAT DIHYDRATE 1.25 MG/ML VIAL IVP PRN (18:30)
[2021-09-19] MEDS: traZODone HCL 50 MG TABLET (DESYREL) PO PRN (20:33)
[2021-09-19] MEDS: LORazepam 1 MG TABLET PO SCH (20:34)
[2021-09-19] MEDS: ENOXAPARIN SODIUM 40 MG/0.4 ML SYRINGE SUBCUT SCH (20:36)
[2021-09-19] MEDS ORDERED: traZODone HCL 50 MG TABLET (DESYREL) PO SCH (21:00)
--- NOTE | 2021-09-19 21:12 | NUR ---
Patient awake HOB elevated , FALL precautions Remain in place Bed ALARM is on SAFETY MEASURES implemented call schofield given to patient / .
--- NOTE | 2021-09-19 23:08 | NUR ---
LORAZEPAM 1 MG po administer for AGITATION & helpful , patient awake and calm Respirations Remain Regular also unlabored / .
--- NOTE | 2021-09-19 23:19 | NUR ---
LIBRIUM 25 MG po administer as ordered patient awake and calm continue to monitor .
[2021-09-20] VITALS (13 sets, daily range): BP systolic 119–160
--- NOTE | 2021-09-20 06:49 | NUR ---
Patient Resting Desyrel 100 MG po given for sleep aide & helpful / .
[2021-09-20 07:54] LABS: CALCIUM 8.6 mg/dL (8.4-11.0); CREATININE 0.7 mg/dL (0.55-1.30); POTASSIUM 3.5 mmol/L (3.5-5.1)
[2021-09-20] MEDS: FOLIC ACID 1 MG TABLET PO SCH (08:07)
[2021-09-20] MEDS: chlordiazePOXIDE HCL 25 MG CAPSULE PO PRN (08:07)
[2021-09-20] MEDS: LORazepam 1 MG TABLET PO SCH ×2 (08:08→21:29)
[2021-09-20] MEDS: THIAMINE HCL 100 MG TABLET PO SCH (08:08)
[2021-09-20] MEDS: amLODIPine BESYLATE 10 MG TABLET PO SCH (08:08)
[2021-09-20] MEDS: SERTRALINE HCL 50 MG TABLET PO SCH (08:08)
[2021-09-20] MEDS: lisinopriL 20 MG TABLET PO SCH (09:34)
[2021-09-20] MEDS: PANTOPRAZOLE SODIUM 40 MG TAB PO SCH (09:34)
[2021-09-20] MEDS: traZODone HCL 50 MG TABLET (DESYREL) PO PRN ×2 (09:34→21:30)
--- NOTE | 2021-09-20 13:35 | NUR ---
TRANSFER RECEIVED PATIENT FROM ICU.. RECEIVED REPORT FROM RN. PATIENT IN BED RESPIRATIONS EVEN, NON LABORED. BED IN LOW AND LOCKED POSITION, CALL LIGHT WITHIN REACH. PATIENT IS ABLE TO MAKE NEEDS KNOW. OBTAINED VS, ORIENTED PATIENT TO HOSPITAL POLICY AND CALL LIGHT.
--- NOTE | 2021-09-20 16:11 | NUR ---
anxiety patient states having anxiety. requesting that we page for additional medication. Paged Dr Ruby
--- NOTE | 2021-09-20 17:00 | NUR ---
INFORMED DR HANSEN THAT PATIENT IS EXPERIENCING ANXIETY AND IS REQUESTING ADDITIONAL MEDICATION. PER DR HANSEN NO NEW ORDERS
--- NOTE | 2021-09-20 19:17 | NUR ---
CLOSING NOTE PROVIDED SBAR TO COMPOSITION SIDING WORKER NURSE PT IN BED. BED IS LOW AND LOCKED. PT DENIES ANY PAIN/DISCOMFORT. ENDORSED CARE TO NIGHT RN.
[2021-09-20] MEDS: ENOXAPARIN SODIUM 40 MG/0.4 ML SYRINGE SUBCUT SCH (21:30)
[2021-09-21] VITALS: BP_SYST 127
[2021-09-21 04:00] VITALS: BP_SYST 112
[2021-09-21 08:00] VITALS: BP_SYST 151
[2021-09-21] MEDS: lisinopriL 20 MG TABLET PO SCH (08:44)
[2021-09-21] MEDS: PANTOPRAZOLE SODIUM 40 MG TAB PO SCH (08:45)
[2021-09-21] MEDS: LORazepam 1 MG TABLET PO SCH (08:45)
[2021-09-21] MEDS: amLODIPine BESYLATE 10 MG TABLET PO SCH (08:45)
[2021-09-21] MEDS: THIAMINE HCL 100 MG TABLET PO SCH (08:46)
[2021-09-21] MEDS: SERTRALINE HCL 50 MG TABLET PO SCH (08:46)
[2021-09-21] MEDS: FOLIC ACID 1 MG TABLET PO SCH (08:46)
[2021-09-21 14:40] VITALS: BP_SYST 118
--- NOTE | 2021-09-21 14:40 | NUR ---
ROTARY HELPER ACSW Angelita responded to a generated Social Service referral. ACSW also received discharge instructions for outpatient psychiatric follow-up. ACSW Angelita reviewed patient's telepsych consult depicting recommending outpatient treatment to address ADHD, Anxiety and ETOH. ACSW Angelita met with patient at bedside. ACSW completed introductions. reason for referral, and provided business card. Patient was standing up holding his bag awaiting RN to completed discharge. ACSW attempted to discuss outpatient psych needs, but patient declined and stated he met with OKSANA Canseco on Tuesday and obtained resources. ACSW acknowledged previous social work encounter and informed him they were substance abuse resources, and offered him outpatient mental health resources and he again declined.
[2021-09-21] MEDS ORDERED: NOR10 PO (15:04)
[2021-09-21] MEDS ORDERED: SERT100T PO (15:04)
[2021-09-21] MEDS ORDERED: THIA100T73 PO (15:04)
[2021-09-21] MEDS ORDERED: LORA-259 PO (15:05)
[2021-09-21] MEDS ORDERED: TRAZ-251 PO (15:05)
[2021-09-21] MEDS ORDERED: LISI20TA30 PO (15:05)
--- NOTE | 2021-09-22 08:21 | NUR ---
Dispo code 01
== END 2021-09-21 15:20 | disposition home or self-care (01) | DRG 198 ==
LOC: SED 20:08 → SIC 09-19 03:38 → STU 09-20 13:23
PROVIDERS: ADMIT Family Medicine; ATTEND Family Medicine
DX: R07.89 Other chest pain (principal); I25.10 Atherosclerotic heart disease of native coronary artery without angina pectoris; F10.229 Alcohol dependence with intoxication, unspecified; F32.A Depression, unspecified; Z20.822 Contact with and (suspected) exposure to COVID-19; F41.9 Anxiety disorder, unspecified; I10 Essential (primary) hypertension; Z79.899 Other long term (current) drug therapy
CPT/HCPCS: 36415; 71045; 80048; 80053; 80307; 82550; 83690; 83735; 83880; 84484; 85025; 87081; 93005; 93306; 96365; 96366; 96375; 99285; G0378; G0482; J1650; J2060; J2560; J3411; J3475; J3490; J7030

== ENCOUNTER → 2021-12-04 | Emergency (ER) | payer MEDICAID ==
[~2021-12-04] VITALS: Ht 175.3 cm; Wt 93.0 kg
[~2021-12-04] MED LIST changes: +ASPIRIN 325 MG TABLET PO ONE; +KETOROLAC TROMETHAMINE 30 MG VIAL IVP ONE; +LIB25 PO; +LISI20TA30 PO; +LORA-259 PO; +LORazepam 2 MG/ML VIAL IVP ONE; +MORPHINE 4 MG INJ. 4 MG/ML VIAL IVP ONE; +NACL 0.9% 1,000 ML IV ONE; +NITROGLYCERIN 0.4 MG TAB.SUBL SL ONE; +NOR10 PO; +SERT100T PO; +THIA100T73 PO; +TRAZ-251 PO; +iohexoL 350 mgI/mL, 100 ML INFUS..BTL IV ONE
[2021-12-04 14:59] VITALS: BP_SYST 163
[2021-12-04 15:55] LABS: BILIRUBIN,URINE NEGATIVE (NEGATIVE); BLOOD, URINE NEGATIVE (NEGATIVE); CLARITY/URINE CLEAR (CLEAR); COLOR,URINE YELLOW (YELLOW); GLUCOSE,URINE NEGATIVE (NEGATIVE); KETONES,URINE NEGATIVE (NEGATIVE); LEUKOCYTE ESTERASE ,URINE NEGATIVE (NEGATIVE); NITRITE, URINE NEGATIVE (NEGATIVE); PROTEIN URINE NEGATIVE (NEGATIVE); UROBILINOGEN,URINE 0.2 (0.2-1.0)
[2021-12-04 16:05] LABS: BASOPHILS # (AUTO) 0.1 K/uL (0.0-0.2); BASOPHILS % (AUTO) 0.9 % (0.0-2.0); EOSINOPHILS # (AUTO) 0.1 K/uL (0.0-0.4); EOSINOPHILS % (AUTO) 0.9 % (0.0-4.0); HEMATOCRIT 40.2 % (36-54); LYMPHOCYTES # (AUTO) 2.4 K/uL (1.0-5.5); LYMPHOCYTES % (AUTO) 35.7 % (20.5-51.5); MEAN CORPUSCULAR HEMOGLOBIN 30 pg (27-31); MEAN CORPUSCULAR HGB CONC 35 % (32-36); MEAN CORPUSCULAR VOLUME 87 fL (79.0-98.0); MONOCYTES # (AUTO) 0.4 K/uL (0.0-1.0); MONOCYTES % (AUTO) 6.2 % (1.7-9.3); NEUTROPHILS # (AUTO) 3.7 K/uL (1.8-7.7); NEUTROPHILS % (AUTO) 56.3 % (40.0-70.0); PLATELET COUNT (AUTO) 301 K/uL (130-430); RED BLOOD CELL COUNT(AUTO) 4.64 MIL/uL (4.2-6.2); RED CELL DISTRIBUTION WIDTH 12.7 % (9.0-15.0); WHITE BLOOD COUNT (AUTO) 6.7 K/uL (4.8-10.8)
[2021-12-04 16:27] LABS: BARBITURATE, URINE NEGATIVE (NEG <=200); BENZODIAZEPINE, URINE NEGATIVE (NEG <=150); CANNABINOID, URINE NEGATIVE (NEG <=50); COCAINE, URINE NEGATIVE (NEG <=150); METHAMPHETAMINES SCREEN,URINE NEGATIVE (NEG <=500); OPIATE, URINE NEGATIVE (NEG <=100); PHENCYCLIDINE SCREEN,URINE NEGATIVE (NEG <=25); UR TRICYCLIC ANTIDEPRESSANTS NEGATIVE (NEG <=300); URINE AMPHETAMINE NEGATIVE (NEG <=500); URINE METHADONE NEGATIVE (NEG <=200); URINE OXYCODONE SCREEN NEGATIVE (NEG <=100); URINE PROPOXYPHENE SCREEN NEGATIVE (NEG <=300)
[2021-12-04 17:33] LABS: ANION GAP 9 (5-15); CALCIUM 8.6 mg/dL (8.4-11.0); CHLORIDE 98 mmol/L (98-107); CREATININE 0.95 mg/dL (0.55-1.30); GLUCOSE 113 mg/dL (70-99); POTASSIUM 3.1 mmol/L (3.5-5.1); UREA NITROGEN, BLOOD 11 mg/dL (8-21)
[2021-12-04 17:35] LABS: GFR AFRICAN AMERICAN 111 mL/min (>90)
[2021-12-04 17:46] LABS: ALANINE AMINOTRANSFERASE 24 U/L (12-78); ALBUMIN 3.9 g/dL (3.4-4.8); ALCOHOL, BLOOD 324 mg/dL (<10); ASPARTATE AMINOTRANSFERASE 19 U/L (10-37); LIPASE 132 U/L (73-393)
[2021-12-04 18:31] VITALS: BP_SYST 147
[2021-12-04 21:32] LABS: ACETAMINOPHEN < 1 ug/mL (1-30)
== END | disposition home or self-care (01) ==
LOC: SED 14:42
DX: R07.89 Other chest pain (principal); F10.129 Alcohol abuse with intoxication, unspecified; R11.0 Nausea; E87.6 Hypokalemia; Z79.899 Other long term (current) drug therapy; Y90.6 Blood alcohol level of 120-199 mg/100 ml
CPT/HCPCS: 99285; 96374; 71275; 71045; 96361; 96375; 80307; 80053; 83690; 85025; 85379; 87040; 87086; 84484; 36415; 81003; 76376; G0482; Q9967; J1885; J2060; J2270; J7030; G0480; G0481